=== PATIENT | female | born 1945 | race Caucasian/White ===

== ENCOUNTER 2016-06-17 16:29 | Inpatient (IN) | payer OTHER, MEDICARE ==
[~2016-06-17] VITALS: Ht 165.1 cm; Wt 96.4 kg
[~2016-06-17 16:29] MED LIST: AMLODIPINE BESYL5 MG PO; AMPICILLIN TRI500 MG PO; ASPIRIN81 M2 PO; CARDIZEM CD120 M1 PO; CIPRO I.V.400 MG/200 IV; CLEOCIN PE75 MG/5 ML PO; CLINDAMYCIN HC300 MG PO; COUMADIN2.5 MG PO; COUMADIN5 MG PO; Cardizem CD,Cartia XT,Tiazac PO; DIGOXIN125 MCG PO; DILTIAZEM 24HR120 MG PO; DIOVAN320 MG PO; FUROSEMIDE20 MG PO; GLUCOVANCE 51 TABLET PO; LANTUS 10100 UNITS/ SC; LANTUS 3 M100 UNITS1 SC; LASIX20 MG PO; LEVAQUIN500 MG PO; LEVEMIR FL100 UNIT/1 SC; LIPITOR20 MG PO; LIPITOR40 MG PO; LIVALO2 MG PO; MULTI-VITAMIN1 EAC4 PO; NOVOLOG 10100 UNITS/ SC; NOVOLOG PE100 UNITS/ SC; PLETAL50 MG PO; PRAVACHOL40 MG PO; SANTYL30 GM TP; SSD25GM TP; TRILIPIX135 MG PO; TYLENOL EXTRA500 MG PO
[2016-06-17 17:16] LABS: EOSINOPHIL COUNT 0.2 K/uL (0-0.3); HEMATOCRIT 37.2 % (36.0-46.0); IMMATURE GRANULOCYTE (%) 0.4 % (0.0-0.7); IMMATURE GRANULOCYTE COUNT 0.3 K/uL; LYMPHOCYTE COUNT 0.9 K/uL (1.0-2.8); MCH 28.7 PG (29.0-34.0); MCHC 32.5 G/DL (30.0-36.0); MCV 88.4 FL (83-99); MEAN PLAT.VOLUME 10.6 uM^3 (9.5-12.4); MONOCYTE COUNT 0.9 K/uL (0-0.8); NEUTROPHIL (%) 74.4 % (45-76); PLATELET COUNT 155 K/uL (156-360); RBC DIS.WIDTH-CV 15.2 % (11.8-14.6); RBC DIS.WIDTH-SD 48.5 % (39-53); RED BLOOD COUNT 4.21 M/uL (3.80-5.20); WHITE BLOOD COUNT 8.1 K/uL (4.1-10.2)
[2016-06-17 17:38] LABS: TROP-I INTERPRETATION NEGATIVE; TROPONIN-I 0.06 ng/mL (0.0-0.30)
[2016-06-17 19:30] LABS: CHLORIDE 106 mEq/L (99-109); POTASSIUM 4.5 mEq/L (3.7-5.4); SODIUM 138 mEq/L (136-147)
[2016-06-17 19:32] LABS: GLUCOSE 228 mg/dL (70-99)
[2016-06-17 19:33] LABS: ANION GAP 12 MEQ/L (2-14)
[2016-06-17 19:34] LABS: TOTAL BILIRUBIN 0.6 mg/dL (0.0-1.0)
[2016-06-17 19:35] LABS: ALKALINE PHOSPHATASE 95 IU/L (3-129)
[2016-06-17 19:36] LABS: GFR ESTIMATE (CALCULATED) 22 mL/min/
[2016-06-17 19:37] LABS: UREA NITROGEN (BUN) 31 mg/dL (9-23)
[2016-06-17 19:42] LABS: PROTHROMBIN TIME 42.5 (9.2-11.2)
[2016-06-17] MEDS ORDERED: LO-DOSE ASPIRIN81 M2 PO (19:48)
[2016-06-17] MEDS ORDERED: HUMULIN 70100 UNIT/2 SC (19:49)
[2016-06-18 00:50] LABS: TROP-I INTERPRETATION NEGATIVE
[2016-06-18 01:23] LABS: POINT-OF-CARE METER ID UU13113702
[2016-06-18 03:23] VITALS: BP 158/70
[2016-06-18 07:19] LABS: HEMATOCRIT 31.1 % (36.0-46.0); MCHC 32.2 G/DL (30.0-36.0); MCV 90.1 FL (83-99); MEAN PLAT.VOLUME 10.8 uM^3 (9.5-12.4); PLATELET COUNT 133 K/uL (156-360); RBC DIS.WIDTH-CV 15.4 % (11.8-14.6); RBC DIS.WIDTH-SD 50.3 % (39-53); RED BLOOD COUNT 3.45 M/uL (3.80-5.20); WHITE BLOOD COUNT 5.9 K/uL (4.1-10.2)
[2016-06-18 07:30] VITALS: BP 157/81
[2016-06-18 07:31] LABS: ALKALINE PHOSPHATASE 57 IU/L (3-129); ANION GAP 10 MEQ/L (2-14); CHLORIDE 106 MEQ/L (99-109); GFR ESTIMATE (CALCULATED) 25 mL/min/; GLUCOSE 70 mg/dL (70-99); POTASSIUM 3.8 MEQ/L (3.7-5.4); SAMPLE HEMOLYSIS CHECK 0; SAMPLE ICTERIC CHECK 0; SAMPLE LIPEMIA CHECK 0; SODIUM 139 MEQ/L (136-147); TOTAL BILIRUBIN 0.6 MG/DL (0.0-1.0); UREA NITROGEN (BUN) 28 mg/dL (9-23)
[2016-06-18 07:34] LABS: TROP-I INTERPRETATION NEGATIVE; TROPONIN-I 0.08 ng/mL (0.0-0.30)
[2016-06-18 11:05] LABS: INTER. NORMALIZED RATIO 3.9; PROTHROMBIN TIME 41.1 (9.2-11.2)
[2016-06-18 12:00] VITALS: BP 142/76
[2016-06-18 12:49] LABS: POINT-OF-CARE METER ID UU13113700
[2016-06-18 16:01] VITALS: BP 145/84
[2016-06-18 17:21] LABS: POINT-OF-CARE METER ID UU14162513
[2016-06-18 21:42] LABS: POINT-OF-CARE METER ID UU14162513
[2016-06-19 00:32] VITALS: BP 139/84
[2016-06-19 02:37] VITALS: BP 141/85
[2016-06-19 07:36] VITALS: BP 146/65
[2016-06-19 08:44] LABS: EOSINOPHIL (%) 3.2 % (0-5); EOSINOPHIL COUNT 0.2 K/uL (0-0.3); HEMATOCRIT 33.4 % (36.0-46.0); IMMATURE GRANULOCYTE (%) 0.3 % (0.0-0.7); LYMPHOCYTE COUNT 1.6 K/uL (1.0-2.8); MCHC 32.3 G/DL (30.0-36.0); MCV 89.5 FL (83-99); MONOCYTE (%) 10.9 % (3-12); MONOCYTE COUNT 0.8 K/uL (0-0.8); NEUTROPHIL (%) 63.1 % (45-76); NEUTROPHIL COUNT 4.4 K/uL (1.8-6.4); PLATELET COUNT 140 K/uL (156-360); RBC DIS.WIDTH-CV 15.3 % (11.8-14.6); RBC DIS.WIDTH-SD 50.3 % (39-53); RED BLOOD COUNT 3.73 M/uL (3.80-5.20)
[2016-06-19 08:54] LABS: INTER. NORMALIZED RATIO 3.2; PROTHROMBIN TIME 34.1 (9.2-11.2)
[2016-06-19 09:04] LABS: ANION GAP 8 MEQ/L (2-14); CHLORIDE 103 MEQ/L (99-109); GFR ESTIMATE (CALCULATED) 22 mL/min/; GLUCOSE 80 mg/dL (70-99); MAGNESIUM 1.7 mg/dl (1.3-2.7); SAMPLE HEMOLYSIS CHECK 0; SAMPLE ICTERIC CHECK 0; SAMPLE LIPEMIA CHECK 0; SODIUM 137 MEQ/L (136-147); UREA NITROGEN (BUN) 32 mg/dL (9-23)
[2016-06-19 09:12] LABS: POTASSIUM 4.8 MEQ/L (3.7-5.4)
[2016-06-19 11:49] VITALS: BP 119/56
[2016-06-19 15:37] VITALS: BP 117/70
[2016-06-19 19:42] VITALS: BP 114/54
[2016-06-20 00:42] VITALS: BP 153/67
[2016-06-20 03:59] VITALS: BP 130/64
[2016-06-20 07:40] VITALS: BP 131/84
[2016-06-20 08:37] LABS: INTER. NORMALIZED RATIO 2.2; PROTHROMBIN TIME 23.2 (9.2-11.2)
[2016-06-20 08:47] LABS: HEMATOCRIT 33.4 % (36.0-46.0); MCH 29.1 PG (29.0-34.0); MCV 90.8 FL (83-99); MEAN PLAT.VOLUME 11.1 uM^3 (9.5-12.4); PLATELET COUNT 147 K/uL (156-360); RBC DIS.WIDTH-CV 15.4 % (11.8-14.6); RBC DIS.WIDTH-SD 51.2 % (39-53); RED BLOOD COUNT 3.68 M/uL (3.80-5.20); WHITE BLOOD COUNT 7.6 K/uL (4.1-10.2)
[2016-06-20 08:56] LABS: ANION GAP 9 MEQ/L (2-14); CHLORIDE 102 MEQ/L (99-109); GFR ESTIMATE (CALCULATED) 19 mL/min/; GLUCOSE 113 mg/dL (70-99); POTASSIUM 4.9 MEQ/L (3.7-5.4); SAMPLE HEMOLYSIS CHECK 0; SAMPLE ICTERIC CHECK 0; SAMPLE LIPEMIA CHECK 0; SODIUM 137 MEQ/L (136-147); UREA NITROGEN (BUN) 41 mg/dL (9-23)
[2016-06-20 09:46] LABS: DIGOXIN 0.7 ng/mL (0.8-2.0)
[2016-06-20 11:15] VITALS: BP 129/69
[2016-06-20 16:10] VITALS: BP 145/81
[2016-06-20 20:00] VITALS: BP 146/67
[2016-06-21] VITALS (7 sets, daily range): BP systolic 127–178; BP diastolic 73–87
[2016-06-21 07:39] LABS: HEMATOCRIT 34.3 % (36.0-46.0); MCH 29.4 PG (29.0-34.0); MCHC 32.7 G/DL (30.0-36.0); MEAN PLAT.VOLUME 11.1 uM^3 (9.5-12.4); PLATELET COUNT 152 K/uL (156-360); RBC DIS.WIDTH-CV 15.2 % (11.8-14.6); RBC DIS.WIDTH-SD 49.8 % (39-53); RED BLOOD COUNT 3.81 M/uL (3.80-5.20); WHITE BLOOD COUNT 6.8 K/uL (4.1-10.2)
[2016-06-21 07:53] LABS: INTER. NORMALIZED RATIO 1.8; PROTHROMBIN TIME 18.4 (9.2-11.2)
[2016-06-21 07:57] LABS: Estimated Average Glucose 169 mg/dL (70-123); HEMOGLOBIN A1c (GLYCOHEMOGLOB) 7.5 % HGB (Below 5.7)
[2016-06-21 08:07] LABS: ANION GAP 9 MEQ/L (2-14); CHLORIDE 100 MEQ/L (99-109); GFR ESTIMATE (CALCULATED) 18 mL/min/; GLUCOSE 157 mg/dL (70-99); POTASSIUM 4.5 MEQ/L (3.7-5.4); SAMPLE HEMOLYSIS CHECK 0; SAMPLE ICTERIC CHECK 0; SAMPLE LIPEMIA CHECK 0; SODIUM 135 MEQ/L (136-147); UREA NITROGEN (BUN) 46 mg/dL (9-23)
[2016-06-22] VITALS: BP 155/72
[2016-06-22 04:16] LABS: INTER. NORMALIZED RATIO 1.7
[2016-06-22 04:27] LABS: CHLORIDE 103 mEq/L (99-109); POTASSIUM 4.6 mEq/L (3.7-5.4); SODIUM 135 mEq/L (136-147)
[2016-06-22 04:29] LABS: GLUCOSE 165 mg/dL (70-99)
[2016-06-22 04:30] LABS: ANION GAP 8 MEQ/L (2-14)
[2016-06-22 04:33] LABS: GFR ESTIMATE (CALCULATED) 16 mL/min/
[2016-06-22 04:34] VITALS: BP 159/76
[2016-06-22 04:34] LABS: UREA NITROGEN (BUN) 51 mg/dL (9-23)
[2016-06-22 08:43] VITALS: BP 139/61
[2016-06-22 08:58] LABS: POINT-OF-CARE METER ID UU14174225
[2016-06-22 10:11] LABS: C DIFF TOXIN POSITIVE (NEGATIVE); PROBE CHECK PASS
[2016-06-22 17:42] LABS: POINT-OF-CARE METER ID UU14174225
[2016-06-22 20:00] VITALS: BP 142/82
[2016-06-23] VITALS (7 sets, daily range): BP systolic 138–148; BP diastolic 60–77
[2016-06-23 07:29] LABS: INTER. NORMALIZED RATIO 1.9; PROTHROMBIN TIME 19.8 (9.2-11.2)
[2016-06-23 07:39] LABS: EOSINOPHIL (%) 3.8 % (0-5); EOSINOPHIL COUNT 0.2 K/uL (0-0.3); HEMATOCRIT 33.3 % (36.0-46.0); IMMATURE GRANULOCYTE (%) 0.3 % (0.0-0.7); LYMPHOCYTE COUNT 1.5 K/uL (1.0-2.8); MCH 29.1 PG (29.0-34.0); MCV 88.1 FL (83-99); MONOCYTE (%) 11.7 % (3-12); MONOCYTE COUNT 0.7 K/uL (0-0.8); NEUTROPHIL (%) 59.7 % (45-76); NEUTROPHIL COUNT 3.7 K/uL (1.8-6.4); RBC DIS.WIDTH-CV 14.9 % (11.8-14.6); RBC DIS.WIDTH-SD 48.1 % (39-53); RED BLOOD COUNT 3.78 M/uL (3.80-5.20); WHITE BLOOD COUNT 6.3 K/uL (4.1-10.2)
[2016-06-23 07:47] LABS: ANION GAP 8 MEQ/L (2-14); CHLORIDE 103 MEQ/L (99-109); GFR ESTIMATE (CALCULATED) 19 mL/min/; POTASSIUM 4.8 MEQ/L (3.7-5.4); SAMPLE HEMOLYSIS CHECK 0; SAMPLE ICTERIC CHECK 0; SAMPLE LIPEMIA CHECK 0; SODIUM 136 MEQ/L (136-147); UREA NITROGEN (BUN) 52 mg/dL (9-23); URIC ACID 9.7 mg/dL (3.1-9.2)
[2016-06-23 07:56] LABS: GLUCOSE 115 mg/dL (70-99); MAGNESIUM 2.2 mg/dl (1.3-2.7)
[2016-06-23 08:07] LABS: ADD MIUA? YES; BILIRUBIN NEGATIVE; BLOOD SMALL; COLOR YELLOW ((YELLOW)); GLUCOSE (STRIP) NEGATIVE; KETONES NEGATIVE; LEUKOCYTES MODERATE; NITRITE NEGATIVE; PROTEIN (STRIP) 30; UROBILINOGEN 0.2 MG/DL (0.2-1.0)
[2016-06-23 08:25] LABS: MEAN PLAT.VOLUME 10.7 uM^3 (9.5-12.4); PLAT.SUFFICIENCY ADEQUATE; PLATELET COUNT 147 K/uL (156-360); USER ID CCL
[2016-06-23 08:36] LABS: BACTERIA 3+ /HPF; EPITHELIAL CELLS RARE /HPF; MUCUS NONE SEEN /LPF; WHITE BLOOD CELLS TNTC /HPF (0-5); WHITE BLOOD CELLS CLUMP FEW /HPF (0-5)
[2016-06-24 04:02] VITALS: BP 149/73
[2016-06-24 06:58] LABS: ANION GAP 9 MEQ/L (2-14); CHLORIDE 103 MEQ/L (99-109); GFR ESTIMATE (CALCULATED) 21 mL/min/; GLUCOSE 118 mg/dL (70-99); SAMPLE HEMOLYSIS CHECK 2; SAMPLE ICTERIC CHECK 0; SAMPLE LIPEMIA CHECK 0; SODIUM 133 MEQ/L (136-147); UREA NITROGEN (BUN) 52 mg/dL (9-23)
[2016-06-24 06:59] LABS: POTASSIUM ND MEQ/L (3.7-5.4)
[2016-06-24 07:41] VITALS: BP 140/63
[2016-06-24 09:05] LABS: POTASSIUM 4.9 MEQ/L (3.7-5.4)
[2016-06-24 10:53] LABS: INTER. NORMALIZED RATIO 2.1; PROTHROMBIN TIME 21.8 (9.2-11.2)
[2016-06-24 11:41] VITALS: BP 138/60
[2016-06-24] MEDS ORDERED: LOSARTAN POTASS50 MG PO (14:47)
[2016-06-24] MEDS ORDERED: METRONIDAZOLE500 MG PO (14:47)
[2016-06-24] MEDS ORDERED: BACTROBAN OINTM22 GM TP (14:47)
[2016-06-24] MEDS ORDERED: APRESOLINE50 MG PO (14:47)
== END 2016-06-24 16:02 | disposition home or self-care (01) | DRG 291 ==
LOC: EME 16:29 → 5WEST 23:25 → EDOF 23:25 → 5WEST 06-18 03:11 → 5SOUTH 06-18 16:01 → 5WEST 06-18 16:01 → 5SOUTH 06-19 02:22
PROVIDERS: Emergency Medicine; Hospitalist; Internal Medicine; Internal Medicine Nephrology; Physician Assistant Medical
PROC: 0HD4XZZ Extraction of Neck Skin, External Approach (ICD-10-PCS; principal; 2016-06-18)
PROC: 0HDBXZZ Extraction of Right Upper Arm Skin, External Approach (ICD-10-PCS; principal; 2016-06-18)
PROC: 0HDHXZZ Extraction of Right Upper Leg Skin, External Approach (ICD-10-PCS; principal; 2016-06-18)
DX: I50.23 Acute on chronic systolic (congestive) heart failure (principal); L89.213 Pressure ulcer of right hip, stage 3; I26.09 Other pulmonary embolism with acute cor pulmonale; N18.4 Chronic kidney disease, stage 4 (severe); I48.1 Persistent atrial fibrillation; A04.7 Enterocolitis due to Clostridium difficile; K90.49 Malabsorption due to intolerance, not elsewhere classified; N17.9 Acute kidney failure, unspecified; E66.01 Morbid (severe) obesity due to excess calories; I12.9 Hypertensive chronic kidney disease with stage 1 through stage 4 chronic kidney disease, or unspecified chronic kidney disease; E11.22 Type 2 diabetes mellitus with diabetic chronic kidney disease; I27.2 Other secondary pulmonary hypertension; E78.5 Hyperlipidemia, unspecified; D64.9 Anemia, unspecified; E11.40 Type 2 diabetes mellitus with diabetic neuropathy, unspecified; I51.7 Cardiomegaly; I25.5 Ischemic cardiomyopathy; I25.2 Old myocardial infarction; Z95.5 Presence of coronary angioplasty implant and graft; R60.0 Localized edema; L30.9 Dermatitis, unspecified; G47.30 Sleep apnea, unspecified; Z87.81 Personal history of (healed) traumatic fracture; Z95.1 Presence of aortocoronary bypass graft; Z79.4 Long term (current) use of insulin; Z88.2 Allergy status to sulfonamides; Z88.6 Allergy status to analgesic agent; Z88.8 Allergy status to other drugs, medicaments and biological substances; Z68.35 Body mass index [BMI] 35.0-35.9, adult
CPT/HCPCS: 71010; 76770; 80048; 80053; 80162; 81003; 82570; 82948; 83036; 83735; 83880; 84100; 84156; 84484; 84550; 84999; 85025; 85027; 85610; 85651; 87070; 87075; 87077; 87086; 87147; 87186; 87205; 87493; 93005; 93306; 94799; 97530 GP; 99281; 99285; G0378; J0696; J1170; J1815; J1940; J7050

== ENCOUNTER 2016-11-08 11:45 | Inpatient (IN) | payer OTHER, MEDICARE ==
[~2016-11-08] VITALS: Ht 165.1 cm; Wt 110.0 kg
[~2016-11-08 11:45] MED LIST changes: +APRESOLINE50 MG PO; +BACTROBAN OINTM22 GM TP; +HUMULIN 70100 UNIT/2 SC; +LO-DOSE ASPIRIN81 M2 PO; +LOSARTAN POTASS50 MG PO; +METRONIDAZOLE500 MG PO
[2016-11-08 14:35] LABS: EOSINOPHIL (%) 0.5 % (0-5); EOSINOPHIL COUNT 0.1 K/uL (0-0.3); IMMATURE GRANULOCYTE (%) 0.5 % (0.0-0.7); IMMATURE GRANULOCYTE COUNT 0.1 K/uL; INSTRUMENT ABS NEUTROPHIL CT 12.8 K/uL; LYMPHOCYTE COUNT 0.7 K/uL (1.0-2.8); MCH 28.2 PG (29.0-34.0); MCHC 31.9 G/DL (30.0-36.0); MCV 88.5 FL (83-99); MEAN PLAT.VOLUME 10.4 uM^3 (9.5-12.4); MONOCYTE (%) 7.4 % (3-12); MONOCYTE COUNT 1.1 K/uL (0-0.8); NEUTROPHIL (%) 86.8 % (45-76); NEUTROPHIL COUNT 12.8 K/uL (1.8-6.4); PLATELET COUNT 151 K/uL (156-360); RBC DIS.WIDTH-CV 15.5 % (11.8-14.6); RED BLOOD COUNT 4.18 M/uL (3.80-5.20); WHITE BLOOD COUNT 14.8 K/uL (4.1-10.2)
[2016-11-08 14:44] LABS: CHLORIDE 108 mEq/L (99-109); POTASSIUM 4.6 mEq/L (3.7-5.4); SODIUM 138 mEq/L (136-147)
[2016-11-08 14:45] LABS: INTER. NORMALIZED RATIO 2.5; MAGNESIUM 1.7 mg/dL (1.3-2.7); PROTHROMBIN TIME 26.1 (9.2-11.2); PTT 41.6 (25-32)
[2016-11-08 14:46] LABS: GLUCOSE 198 mg/dL (70-99)
[2016-11-08 14:47] LABS: ANION GAP 10 MEQ/L (2-14)
[2016-11-08 14:50] LABS: GFR ESTIMATE (CALCULATED) 22 mL/min/
[2016-11-08 14:51] LABS: UREA NITROGEN (BUN) 30 mg/dL (9-23)
[2016-11-08 14:56] LABS: TROP-I INTERPRETATION INDETERMINATE; TROPONIN-I 0.33 ng/mL (0.0-0.30)
[2016-11-08 18:30] LABS: POINT-OF-CARE METER ID UU13113702
[2016-11-08] MEDS ORDERED: DIGOX125 MCG PO (21:45)
[2016-11-08 22:56] LABS: TROP-I INTERPRETATION INDETERMINATE; TROPONIN-I 0.36 ng/mL (0.0-0.30)
[2016-11-09 00:19] LABS: POINT-OF-CARE METER ID UU13113702
[2016-11-09 03:02] LABS: ADD MIUA? YES; BILIRUBIN NEGATIVE; BLOOD MODERATE; COLOR YELLOW ((YELLOW)); GLUCOSE (STRIP) NEGATIVE; KETONES NEGATIVE; LEUKOCYTES SMALL; NITRITE NEGATIVE; PROTEIN (STRIP) 100; UROBILINOGEN 0.2 MG/DL (0.2-1.0)
[2016-11-09 03:21] LABS: EPITHELIAL CELLS RARE /HPF; RED BLOOD CELLS 0-5 /HPF (0-5)
[2016-11-09 03:22] LABS: BACTERIA 3+ /HPF; CASTS PRESENT /LPF; CRYSTALS NONE SEEN; HYALINE CASTS 0-5 /LPF; MUCUS RARE /LPF
[2016-11-09 04:23] LABS: INTER. NORMALIZED RATIO 2.8; PROTHROMBIN TIME 29.2 (9.2-11.2)
[2016-11-09 04:39] LABS: TROP-I INTERPRETATION INDETERMINATE; TROPONIN-I 0.35 ng/mL (0.0-0.30)
[2016-11-09 07:25] LABS: POINT-OF-CARE METER ID UU13113702; POINT-OF-CARE USER ID NUTJLF39
[2016-11-09 12:58] LABS: POINT-OF-CARE METER ID UU13113702
[2016-11-09 13:39] VITALS: BP 142/67
[2016-11-09 17:59] VITALS: BP 130/80
[2016-11-09 18:46] VITALS: BP 134/78
[2016-11-09 23:09] VITALS: BP 154/76
[2016-11-10 03:49] VITALS: BP 123/56
[2016-11-10 04:24] LABS: METH RESISTANT S AUREUS PCR NEGATIVE (NEGATIVE)
[2016-11-10 04:26] LABS: PROBE CHECK PASS; SPECIMEN PROCESSING CONTROL PASS
[2016-11-10 05:45] LABS: INTER. NORMALIZED RATIO 4.3; PROTHROMBIN TIME 45.9 (9.2-11.2)
[2016-11-10 07:54] LABS: POINT-OF-CARE METER ID UU14174216
[2016-11-10 07:58] VITALS: BP 163/79
[2016-11-10 08:27] LABS: HEMATOCRIT 33.3 % (36.0-46.0); MCHC 32.1 G/DL (30.0-36.0); MCV 90.2 FL (83-99); MEAN PLAT.VOLUME 10.9 uM^3 (9.5-12.4); PLATELET COUNT 152 K/uL (156-360); RBC DIS.WIDTH-CV 15.2 % (11.8-14.6); RBC DIS.WIDTH-SD 50.6 % (39-53); RED BLOOD COUNT 3.69 M/uL (3.80-5.20); WHITE BLOOD COUNT 10.2 K/uL (4.1-10.2)
[2016-11-10 08:41] LABS: ANION GAP 13 MEQ/L (2-14); CHLORIDE 104 MEQ/L (99-109); GFR ESTIMATE (CALCULATED) 23 mL/min/; POTASSIUM 3.8 MEQ/L (3.7-5.4); SAMPLE HEMOLYSIS CHECK 0; SAMPLE ICTERIC CHECK 0; SAMPLE LIPEMIA CHECK 0; SODIUM 141 MEQ/L (136-147); UREA NITROGEN (BUN) 35 mg/dL (9-23)
[2016-11-10 09:06] LABS: GLUCOSE 67 mg/dL (70-99)
[2016-11-10 10:31] LABS: POINT-OF-CARE METER ID UU13113698
[2016-11-10 11:02] LABS: POINT-OF-CARE METER ID UU14174216
[2016-11-10 11:45] VITALS: BP 154/63
[2016-11-10 15:41] VITALS: BP 159/75
[2016-11-10] MEDS ORDERED: LOPRESSOR25 MG PO (16:58)
[2016-11-10 19:20] VITALS: BP 130/87
[2016-11-11] VITALS (7 sets, daily range): BP systolic 121–1476; BP diastolic 57–76
[2016-11-11 06:06] LABS: INTER. NORMALIZED RATIO 4.2; PROTHROMBIN TIME 44.4 (9.2-11.2)
[2016-11-11 11:39] LABS: POINT-OF-CARE METER ID UU14174216
[2016-11-11 12:04] LABS: HEMATOCRIT 34.2 % (36.0-46.0); MCH 29.5 PG (29.0-34.0); MCV 89.3 FL (83-99); MEAN PLAT.VOLUME 10.6 uM^3 (9.5-12.4); PLATELET COUNT 157 K/uL (156-360); RBC DIS.WIDTH-CV 15.4 % (11.8-14.6); RBC DIS.WIDTH-SD 50.4 % (39-53); RED BLOOD COUNT 3.83 M/uL (3.80-5.20); WHITE BLOOD COUNT 10.8 K/uL (4.1-10.2)
[2016-11-11 12:30] LABS: ANION GAP 11 MEQ/L (2-14); CHLORIDE 99 MEQ/L (99-109); GFR ESTIMATE (CALCULATED) 25 mL/min/; GLUCOSE 103 mg/dL (70-99); POTASSIUM 4.3 MEQ/L (3.7-5.4); SAMPLE HEMOLYSIS CHECK 1; SAMPLE ICTERIC CHECK 0; SAMPLE LIPEMIA CHECK 0; SODIUM 135 MEQ/L (136-147); UREA NITROGEN (BUN) 40 mg/dL (9-23)
[2016-11-11 15:51] LABS: POINT-OF-CARE METER ID UU14174216
[2016-11-11 20:47] LABS: POINT-OF-CARE METER ID UU14174216
[2016-11-12 04:00] VITALS: BP 120/61
[2016-11-12 06:53] LABS: PROTHROMBIN TIME 31.6 (9.2-11.2)
[2016-11-12 08:13] VITALS: BP 116/52
[2016-11-12 10:24] LABS: HEMATOCRIT 32.4 % (36.0-46.0); MCH 28.7 PG (29.0-34.0); MCHC 32.4 G/DL (30.0-36.0); MCV 88.5 FL (83-99); MEAN PLAT.VOLUME 10.8 uM^3 (9.5-12.4); PLATELET COUNT 147 K/uL (156-360); RBC DIS.WIDTH-CV 15.2 % (11.8-14.6); RBC DIS.WIDTH-SD 49.6 % (39-53); RED BLOOD COUNT 3.66 M/uL (3.80-5.20); WHITE BLOOD COUNT 9.6 K/uL (4.1-10.2)
[2016-11-12 10:51] LABS: ANION GAP 10 MEQ/L (2-14); CHLORIDE 98 MEQ/L (99-109); GFR ESTIMATE (CALCULATED) 25 mL/min/; SAMPLE HEMOLYSIS CHECK 0; SAMPLE ICTERIC CHECK 0; SAMPLE LIPEMIA CHECK 0; SODIUM 133 MEQ/L (136-147); UREA NITROGEN (BUN) 41 mg/dL (9-23)
[2016-11-12 10:54] LABS: GLUCOSE 161 mg/dL (70-99)
[2016-11-12 11:20] VITALS: BP 162/86
[2016-11-12 15:27] VITALS: BP 163/76
[2016-11-12 16:33] LABS: POINT-OF-CARE METER ID UU14174225
[2016-11-13 00:16] VITALS: BP 132/81
[2016-11-13 04:31] VITALS: BP 124/76
[2016-11-13 05:52] LABS: INTER. NORMALIZED RATIO 2.4; PROTHROMBIN TIME 25.6 (9.2-11.2)
[2016-11-13 08:00] VITALS: BP 91/46
[2016-11-13 08:36] LABS: HEMATOCRIT 30.8 % (36.0-46.0); MCH 29.4 PG (29.0-34.0); MCHC 32.8 G/DL (30.0-36.0); MCV 89.5 FL (83-99); MEAN PLAT.VOLUME 11.1 uM^3 (9.5-12.4); PLATELET COUNT 146 K/uL (156-360); RBC DIS.WIDTH-CV 15.1 % (11.8-14.6); RBC DIS.WIDTH-SD 49.5 % (39-53); RED BLOOD COUNT 3.44 M/uL (3.80-5.20); WHITE BLOOD COUNT 8.6 K/uL (4.1-10.2)
[2016-11-13 08:51] LABS: ANION GAP 12 MEQ/L (2-14); CHLORIDE 99 MEQ/L (99-109); GFR ESTIMATE (CALCULATED) 22 mL/min/; GLUCOSE 133 mg/dL (70-99); POTASSIUM 3.8 MEQ/L (3.7-5.4); SAMPLE HEMOLYSIS CHECK 0; SAMPLE ICTERIC CHECK 0; SAMPLE LIPEMIA CHECK 0; SODIUM 134 MEQ/L (136-147); UREA NITROGEN (BUN) 46 mg/dL (9-23)
[2016-11-13 09:26] VITALS: BP 138/75
[2016-11-13] MEDS ORDERED: ANCEF,KEFZOL1 GM IM (09:27)
[2016-11-13] MEDS ORDERED: APRESOLINE50 MG PO (09:32)
[2016-11-13] MEDS ORDERED: LASIX40 MG PO (09:32)
[2016-11-13] MEDS ORDERED: CARVEDILOL3.125 MG PO (09:32)
[2016-11-13 11:15] VITALS: BP 176/79
[2016-11-13 15:09] VITALS: BP 183/86
== END 2016-11-13 18:00 | disposition home or self-care (01) | DRG 291 ==
LOC: EME 11:45 → 4EAST 21:20 → EDOF 21:20 → 4EAST 11-09 13:30 → 5SOUTH 11-11 22:43
PROVIDERS: Emergency Medicine; Internal Medicine
DX: I13.0 Hypertensive heart and chronic kidney disease with heart failure and stage 1 through stage 4 chronic kidney disease, or unspecified chronic kidney disease (principal); I50.23 Acute on chronic systolic (congestive) heart failure; E11.22 Type 2 diabetes mellitus with diabetic chronic kidney disease; N18.4 Chronic kidney disease, stage 4 (severe); E78.00 Pure hypercholesterolemia, unspecified; L03.116 Cellulitis of left lower limb; E11.649 Type 2 diabetes mellitus with hypoglycemia without coma; R74.8 Abnormal levels of other serum enzymes; N39.0 Urinary tract infection, site not specified; B96.20 Unspecified Escherichia coli [E. coli] as the cause of diseases classified elsewhere; Z16.12 Extended spectrum beta lactamase (ESBL) resistance; E66.9 Obesity, unspecified; E78.5 Hyperlipidemia, unspecified; G47.30 Sleep apnea, unspecified; D69.6 Thrombocytopenia, unspecified; I25.5 Ischemic cardiomyopathy; I48.2 Chronic atrial fibrillation; M81.0 Age-related osteoporosis without current pathological fracture; I25.10 Atherosclerotic heart disease of native coronary artery without angina pectoris; R79.1 Abnormal coagulation profile; T45.515A Adverse effect of anticoagulants, initial encounter; I27.2 Other secondary pulmonary hypertension; Z68.37 Body mass index [BMI] 37.0-37.9, adult; Z87.891 Personal history of nicotine dependence; I25.2 Old myocardial infarction; Z79.01 Long term (current) use of anticoagulants; Z79.4 Long term (current) use of insulin; Z79.82 Long term (current) use of aspirin; Z91.81 History of falling; Z95.5 Presence of coronary angioplasty implant and graft; Z95.810 Presence of automatic (implantable) cardiac defibrillator; Z95.1 Presence of aortocoronary bypass graft; Z88.2 Allergy status to sulfonamides; Z99.81 Dependence on supplemental oxygen
CPT/HCPCS: 71010; 73590; 73610; 80048; 80162; 81003; 82948; 83605; 83735; 83880; 84484; 85025; 85027; 85610; 85730; 87040; 87077; 87086; 87186; 87641; 93005; 93926; 93971; 94799; 99281; 99285; J0690; J0696; J1815; J1940; J2543; J7050

== ENCOUNTER 2016-11-16 21:31 | Observation (INO) | payer OTHER, MEDICARE ==
[~2016-11-16] VITALS: Ht 165.1 cm; Wt 95.2 kg
[~2016-11-16 21:31] MED LIST changes: +ANCEF,KEFZOL1 GM IM; +CARVEDILOL3.125 MG PO; +DIGOX125 MCG PO; +LASIX40 MG PO; +LOPRESSOR25 MG PO
[2016-11-16 22:45] LABS: HEMATOCRIT 32.6 % (36.0-46.0); MCH 28.4 PG (29.0-34.0); MCHC 32.2 G/DL (30.0-36.0); MCV 88.1 FL (83-99); MEAN PLAT.VOLUME 9.8 uM^3 (9.5-12.4); PLATELET COUNT 217 K/uL (156-360); RBC DIS.WIDTH-CV 14.6 % (11.8-14.6); RBC DIS.WIDTH-SD 46.7 % (39-53); WHITE BLOOD COUNT 9.5 K/uL (4.1-10.2)
[2016-11-16 22:51] LABS: CHLORIDE 102 mEq/L (99-109); INTER. NORMALIZED RATIO 2.8; POTASSIUM 4.2 mEq/L (3.7-5.4); PTT 51.6 (25-32); SODIUM 135 mEq/L (136-147)
[2016-11-16 22:53] LABS: GLUCOSE 150 mg/dL (70-99)
[2016-11-16 22:55] LABS: ANION GAP 9 MEQ/L (2-14); TOTAL BILIRUBIN 0.8 mg/dL (0.0-1.0)
[2016-11-16 22:57] LABS: ALKALINE PHOSPHATASE 114 IU/L (3-129); GFR ESTIMATE (CALCULATED) 20 mL/min/
[2016-11-16 22:58] LABS: UREA NITROGEN (BUN) 46 mg/dL (9-23)
[2016-11-16 23:00] LABS: LIPASE 38 U/L (1.0-51.0)
[2016-11-17 03:41] LABS: ADD MIUA? YES; BILIRUBIN NEGATIVE; BLOOD NEGATIVE; COLOR YELLOW ((YELLOW)); GLUCOSE (STRIP) NEGATIVE; KETONES NEGATIVE; LEUKOCYTES NEGATIVE; NITRITE NEGATIVE; PROTEIN (STRIP) 100; SPECIFIC GRAVITY 1.021 (1.000-1.030); UROBILINOGEN 0.2 MG/DL (0.2-1.0)
[2016-11-17 03:44] LABS: BACTERIA RARE /HPF; EPITHELIAL CELLS RARE /HPF; HYALINE CASTS 0-5 /LPF; MUCUS TRACE /LPF; RED BLOOD CELLS 0-5 /HPF (0-5); UCUL ADDED? NO; WHITE BLOOD CELLS 0-5 /HPF (0-5)
[2016-11-17 04:18] VITALS: BP 133/66
[2016-11-17] MEDS ORDERED: LASIX40 MG PO (04:26)
[2016-11-17 07:15] VITALS: BP 134/61
[2016-11-17 10:41] LABS: POINT-OF-CARE METER ID UU14208750
[2016-11-17 12:18] VITALS: BP 114/72
[2016-11-17] MEDS ORDERED: HYDRALAZINE HCL25 MG PO (12:34)
[2016-11-17 15:06] LABS: HEMATOCRIT 30.7 % (36.0-46.0); MCV 89.8 FL (83-99)
[2016-11-17 17:52] VITALS: BP 129/63
[2016-11-17 19:02] VITALS: BP 133/66
[2016-11-17 21:47] LABS: POINT-OF-CARE METER ID UU14208750
[2016-11-17 23:38] LABS: HEMATOCRIT 26.3 % (36.0-46.0); MCV 88.6 FL (83-99)
[2016-11-17 23:55] VITALS: BP 126/62
[2016-11-18 03:46] VITALS: BP 128/61
[2016-11-18 06:20] LABS: HEMATOCRIT 26.4 % (36.0-46.0); MCH 28.6 PG (29.0-34.0); MCHC 31.8 G/DL (30.0-36.0); MCV 89.8 FL (83-99); PLATELET COUNT 175 K/uL (156-360); RBC DIS.WIDTH-CV 14.4 % (11.8-14.6); RBC DIS.WIDTH-SD 46.7 % (39-53)
[2016-11-18 06:34] LABS: RED BLOOD COUNT 2.94 M/uL (3.80-5.20)
[2016-11-18 06:58] LABS: ANION GAP 7 MEQ/L (2-14); CHLORIDE 101 MEQ/L (99-109); GFR ESTIMATE (CALCULATED) 22 mL/min/; GLUCOSE 141 mg/dL (70-99); POTASSIUM 4.8 MEQ/L (3.7-5.4); SAMPLE HEMOLYSIS CHECK 0; SAMPLE ICTERIC CHECK 0; SAMPLE LIPEMIA CHECK 0; SODIUM 135 MEQ/L (136-147); UREA NITROGEN (BUN) 45 mg/dL (9-23)
[2016-11-18 12:04] LABS: POINT-OF-CARE METER ID UU14208750
[2016-11-18 13:09] LABS: INTER. NORMALIZED RATIO 2.2; PROTHROMBIN TIME 23.4 (9.2-11.2)
[2016-11-18 13:28] LABS: HEMATOCRIT 28.8 % (36.0-46.0); MCV 91.1 FL (83-99)
[2016-11-18] MEDS ORDERED: KEFLEX500 MG PO ×3 (13:36→14:47)
== END 2016-11-18 15:21 | disposition home or self-care (01) ==
LOC: EME 21:31 → 2EAST 11-17 02:13 → EDOF 11-17 02:13 → 2EAST 11-17 04:02
PROVIDERS: Emergency Medicine; Hospitalist
DX: K66.1 Hemoperitoneum (principal); L03.116 Cellulitis of left lower limb; N39.0 Urinary tract infection, site not specified; B96.20 Unspecified Escherichia coli [E. coli] as the cause of diseases classified elsewhere; Z16.12 Extended spectrum beta lactamase (ESBL) resistance; I12.9 Hypertensive chronic kidney disease with stage 1 through stage 4 chronic kidney disease, or unspecified chronic kidney disease; E11.22 Type 2 diabetes mellitus with diabetic chronic kidney disease; N18.4 Chronic kidney disease, stage 4 (severe); I48.91 Unspecified atrial fibrillation; Z79.01 Long term (current) use of anticoagulants; I25.10 Atherosclerotic heart disease of native coronary artery without angina pectoris; Z95.1 Presence of aortocoronary bypass graft; I25.2 Old myocardial infarction; E78.5 Hyperlipidemia, unspecified; G47.30 Sleep apnea, unspecified; I25.9 Chronic ischemic heart disease, unspecified; Z87.891 Personal history of nicotine dependence; Z88.1 Allergy status to other antibiotic agents; Z88.2 Allergy status to sulfonamides; Z88.8 Allergy status to other drugs, medicaments and biological substances
CPT/HCPCS: 74176; 80048; 80053; 81003; 82948; 83605; 83690; 85014; 85018; 85027; 85610; 85730; 93005; 99281; 99284; G0378; J0690; J1815; J2270; J2405; J7050

== ENCOUNTER 2017-11-15 17:03 | Inpatient (IN) | payer OTHER, MEDICARE ==
[~2017-11-15] VITALS: Ht 165.1 cm; Wt 99.6 kg
[~2017-11-15 17:03] MED LIST changes: +HYDRALAZINE HCL25 MG PO; +KEFLEX500 MG PO
[2017-11-15 17:39] LABS: HEMOGLOBIN 10.1 G/DL (11.9-15.5); MCH 30.3 PG (29.0-34.0); MCHC 32.6 G/DL (30.0-36.0); MCV 93.1 FL (83-99); PLATELET COUNT 109 K/uL (156-360); RBC DIS.WIDTH-CV 15.4 % (11.8-14.6); RBC DIS.WIDTH-SD 53.1 % (39-53); RED BLOOD COUNT 3.33 M/uL (3.80-5.20); WHITE BLOOD COUNT 5.4 K/uL (4.1-10.2)
[2017-11-15 17:50] LABS: CHLORIDE 111 mEq/L (99-109); POTASSIUM 4.8 mEq/L (3.7-5.4); SODIUM 140 mEq/L (136-147)
[2017-11-15 17:52] LABS: GLUCOSE 136 mg/dL (70-99)
[2017-11-15 17:56] LABS: CREATININE 2.1 mg/dL (0.6-1.3); GFR ESTIMATE (CALCULATED) 24 mL/min/; UREA NITROGEN (BUN) 33 mg/dL (9-23)
[2017-11-15 18:58] LABS: ALBUMIN 3.4 g/dL (3.2-4.8)
[2017-11-15 19:01] LABS: TOTAL PROTEIN 7.7 g/dL (6.4-8.3)
[2017-11-15 19:04] LABS: ALKALINE PHOSPHATASE 85 IU/L (3-129)
[2017-11-15 19:07] LABS: ALT (GPT) 7 IU/L (3-49); AST (GOT) 18 IU/L (2-34); DIRECT BILIRUBIN 0.7 mg/dL (0.0-0.3)
[2017-11-15 19:34] LABS: TROP-I INTERPRETATION NEGATIVE; TROPONIN-I 0.22 ng/mL (0.0-0.30)
[2017-11-15 21:20] LABS: TROP-I INTERPRETATION NEGATIVE; TROPONIN-I 0.22 ng/mL (0.0-0.30)
[2017-11-15] MEDS ORDERED: BUMETANIDE1 MG PO (21:49)
[2017-11-15] MEDS ORDERED: RANEXA500 MG PO (21:49)
[2017-11-15] MEDS ORDERED: LASIX20 MG PO (21:49)
[2017-11-15] MEDS ORDERED: CHOLESTYRAMINE378 GM PO (21:50)
[2017-11-15] MEDS ORDERED: COREG3.125 M1 PO ×2 (21:52→21:54)
[2017-11-16] VITALS (7 sets, daily range): BP systolic 131–144; BP diastolic 62–87
[2017-11-16 01:31] LABS: APPEARANCE SL.HAZY ((CLEAR)); BILIRUBIN NEGATIVE; BLOOD SMALL; COLOR YELLOW ((YELLOW)); GLUCOSE (STRIP) NEGATIVE; KETONES NEGATIVE; LEUKOCYTES TRACE; NITRITE NEGATIVE; PROTEIN (STRIP) NEGATIVE; SPECIFIC GRAVITY 1.008 (1.000-1.030); UROBILINOGEN 0.2 MG/DL (0.2-1.0)
[2017-11-16 01:39] LABS: BACTERIA RARE /HPF; EPITHELIAL CELLS RARE /HPF; HYALINE CASTS 0-5 /LPF; MUCUS NONE SEEN /LPF; RED BLOOD CELLS 0-5 /HPF (0-5); UCUL ADDED? YES
[2017-11-16 06:12] LABS: TROP-I INTERPRETATION NEGATIVE; TROPONIN-I 0.21 ng/mL (0.0-0.30)
[2017-11-16 06:20] LABS: CHLORIDE 108 MEQ/L (99-109); GFR ESTIMATE (CALCULATED) 26 mL/min/; GLUCOSE 119 mg/dL (70-99); SODIUM 140 MEQ/L (136-147); UREA NITROGEN (BUN) 30 mg/dL (9-23)
[2017-11-16 13:12] LABS: TROP-I INTERPRETATION NEGATIVE; TROPONIN-I 0.18 ng/mL (0.0-0.30)
[2017-11-17 03:20] VITALS: BP 136/70
[2017-11-17 07:59] VITALS: BP 130/69
[2017-11-17 08:30] LABS: CHLORIDE 107 MEQ/L (99-109); GFR ESTIMATE (CALCULATED) 26 mL/min/; POTASSIUM 4.6 MEQ/L (3.7-5.4); SODIUM 139 MEQ/L (136-147); UREA NITROGEN (BUN) 35 mg/dL (9-23)
[2017-11-17 08:34] LABS: GLUCOSE 86 mg/dL (70-99)
[2017-11-17 12:07] VITALS: BP 121/64
[2017-11-17 16:39] VITALS: BP 144/81
[2017-11-17 18:39] VITALS: BP 143/78
[2017-11-18] VITALS: BP 148/81
[2017-11-18 00:05] VITALS: BP 142/64
[2017-11-18 06:33] LABS: BASOPHIL (%) 0.3 % (0-1); EOSINOPHIL (%) 1.6 % (0-5); EOSINOPHIL COUNT 0.1 K/uL (0-0.3); HEMATOCRIT 30.6 % (36.0-46.0); HEMOGLOBIN 9.7 G/DL (11.9-15.5); IMMATURE GRANULOCYTE (%) 0.3 % (0.0-0.7); LYMPHOCYTE (%) 12.6 % (15-42); LYMPHOCYTE COUNT 0.8 K/uL (1.0-2.8); MCH 29.6 PG (29.0-34.0); MCHC 31.7 G/DL (30.0-36.0); MCV 93.3 FL (83-99); MONOCYTE (%) 13.1 % (3-12); MONOCYTE COUNT 0.8 K/uL (0-0.8); NEUTROPHIL (%) 72.1 % (45-76); NEUTROPHIL COUNT 4.4 K/uL (1.8-6.4); PLATELET COUNT 105 K/uL (156-360); RBC DIS.WIDTH-SD 51.8 % (39-53); RED BLOOD COUNT 3.28 M/uL (3.80-5.20); WHITE BLOOD COUNT 6.1 K/uL (4.1-10.2)
[2017-11-18 06:54] LABS: CHLORIDE 104 MEQ/L (99-109); CREATININE 2.1 MG/DL (0.6-1.3); GFR ESTIMATE (CALCULATED) 24 mL/min/; GLUCOSE 90 mg/dL (70-99); POTASSIUM 4.2 MEQ/L (3.7-5.4); SODIUM 136 MEQ/L (136-147); UREA NITROGEN (BUN) 36 mg/dL (9-23)
[2017-11-18 07:14] VITALS: BP 123/58
[2017-11-18 15:14] VITALS: BP 123/68
[2017-11-18 21:21] VITALS: BP 141/67
[2017-11-19] VITALS: BP 148/81
[2017-11-19 07:51] VITALS: BP 105/60
[2017-11-19 08:00] VITALS: BP 123/70
[2017-11-19 08:27] LABS: CHLORIDE 102 MEQ/L (99-109); CREATININE 2.2 MG/DL (0.6-1.3); GFR ESTIMATE (CALCULATED) 23 mL/min/; GLUCOSE 73 mg/dL (70-99); POTASSIUM 4.5 MEQ/L (3.7-5.4); SODIUM 137 MEQ/L (136-147); UREA NITROGEN (BUN) 37 mg/dL (9-23)
[2017-11-19 11:56] VITALS: BP 128/69
[2017-11-19 16:06] VITALS: BP 131/72
[2017-11-20 00:15] VITALS: BP 138/63
[2017-11-20 05:58] LABS: CHLORIDE 102 MEQ/L (99-109); CREATININE 2.2 MG/DL (0.6-1.3); GFR ESTIMATE (CALCULATED) 23 mL/min/; GLUCOSE 87 mg/dL (70-99); POTASSIUM 4.6 MEQ/L (3.7-5.4); SODIUM 137 MEQ/L (136-147); UREA NITROGEN (BUN) 37 mg/dL (9-23)
[2017-11-20 07:43] VITALS: BP 116/55
[2017-11-20 17:31] VITALS: BP 108/56
[2017-11-20 23:45] VITALS: BP 139/70
[2017-11-21 06:44] LABS: BASOPHIL (%) 0.4 % (0-1); EOSINOPHIL (%) 3.3 % (0-5); EOSINOPHIL COUNT 0.2 K/uL (0-0.3); HEMATOCRIT 29.5 % (36.0-46.0); HEMOGLOBIN 9.5 G/DL (11.9-15.5); IMMATURE GRANULOCYTE (%) 0.4 % (0.0-0.7); LYMPHOCYTE (%) 19.1 % (15-42); LYMPHOCYTE COUNT 0.9 K/uL (1.0-2.8); MCH 29.7 PG (29.0-34.0); MCHC 32.2 G/DL (30.0-36.0); MCV 92.2 FL (83-99); MONOCYTE (%) 15.4 % (3-12); MONOCYTE COUNT 0.7 K/uL (0-0.8); NEUTROPHIL (%) 61.4 % (45-76); NEUTROPHIL COUNT 2.8 K/uL (1.8-6.4); PLATELET COUNT 106 K/uL (156-360); RBC DIS.WIDTH-SD 50.5 % (39-53); WHITE BLOOD COUNT 4.6 K/uL (4.1-10.2)
[2017-11-21 07:07] LABS: CHLORIDE 101 MEQ/L (99-109); CREATININE 2.2 MG/DL (0.6-1.3); GFR ESTIMATE (CALCULATED) 23 mL/min/; GLUCOSE 104 mg/dL (70-99); SODIUM 135 MEQ/L (136-147); UREA NITROGEN (BUN) 39 mg/dL (9-23)
[2017-11-21 08:17] VITALS: BP 148/74
[2017-11-21] MEDS ORDERED: LASIX40 MG PO (11:00)
[2017-11-21] MEDS ORDERED: ISOSORBIDE DINI10 MG PO (11:00)
[2017-11-21] MEDS ORDERED: APRESOLINE10 MG PO (11:00)
[2017-11-21] MEDS ORDERED: CEFTIN500 MG PO (11:00)
[2017-11-21] MEDS ORDERED: SPIRONOLACTONE25 MG PO (11:16)
[2017-11-21 11:53] VITALS: BP 139/73
[2017-11-21 15:50] VITALS: BP 146/66
== END 2017-11-21 16:00 | disposition home or self-care (01) | DRG 291 ==
LOC: EME 17:03 → EDOF 22:03 → 5SOUTH 22:03 → ENRESERV 22:08 → 5SOUTH 23:27
PROVIDERS: Hospitalist; Internal Medicine; Internal Medicine Nephrology; Physician Assistant
PROC: 0HBJXZZ Excision of Left Upper Leg Skin, External Approach (ICD-10-PCS; principal; 2017-11-18)
PROC: 0HBHXZZ Excision of Right Upper Leg Skin, External Approach (ICD-10-PCS; principal; 2017-11-18)
DX: I13.0 Hypertensive heart and chronic kidney disease with heart failure and stage 1 through stage 4 chronic kidney disease, or unspecified chronic kidney disease (principal); I50.23 Acute on chronic systolic (congestive) heart failure; E11.22 Type 2 diabetes mellitus with diabetic chronic kidney disease; N18.4 Chronic kidney disease, stage 4 (severe); N39.0 Urinary tract infection, site not specified; B96.20 Unspecified Escherichia coli [E. coli] as the cause of diseases classified elsewhere; I48.2 Chronic atrial fibrillation; R18.8 Other ascites; K74.60 Unspecified cirrhosis of liver; D69.6 Thrombocytopenia, unspecified; I25.10 Atherosclerotic heart disease of native coronary artery without angina pectoris; E78.5 Hyperlipidemia, unspecified; I25.5 Ischemic cardiomyopathy; G47.33 Obstructive sleep apnea (adult) (pediatric); D63.1 Anemia in chronic kidney disease; E86.1 Hypovolemia; E66.01 Morbid (severe) obesity due to excess calories; I73.9 Peripheral vascular disease, unspecified; E11.42 Type 2 diabetes mellitus with diabetic polyneuropathy; L89.320 Pressure ulcer of left buttock, unstageable; L97.129 Non-pressure chronic ulcer of left thigh with unspecified severity; K02.9 Dental caries, unspecified; L97.119 Non-pressure chronic ulcer of right thigh with unspecified severity; Z79.4 Long term (current) use of insulin; I25.2 Old myocardial infarction; Z99.81 Dependence on supplemental oxygen; Z95.5 Presence of coronary angioplasty implant and graft; Z79.82 Long term (current) use of aspirin; Z88.2 Allergy status to sulfonamides; Z87.891 Personal history of nicotine dependence; Z91.14 Patient's other noncompliance with medication regimen; Z95.1 Presence of aortocoronary bypass graft; Z95.810 Presence of automatic (implantable) cardiac defibrillator; Z89.412 Acquired absence of left great toe; Z89.422 Acquired absence of other left toe(s); Z68.36 Body mass index [BMI] 36.0-36.9, adult; Z91.11 Patient's noncompliance with dietary regimen
CPT/HCPCS: 71046; 71250; 74176; 80048; 80076; 81003; 82948; 83880; 84484; 85025; 85027; 87077; 87086; 87186; 93005; 94760; 94799; 99281; 99285; A6214; J0696; J1644; J1940